=== PATIENT | female | born 1955 | race Caucasian/White ===

== ENCOUNTER → 2019-08-31 20:05 | Outpatient (CLI) | payer MEDICARE, SELFPAY | PROVIDERS: PCP Nurse Practitioner Primary Care; Visit Provider Internal Medicine Critical Care Medicine | DX: G47.33 Obstructive sleep apnea (adult) (pediatric) (principal) | CPT/HCPCS: 95811 ==

== ENCOUNTER → 2019-10-29 | Outpatient (CLI) | payer MEDICARE, SELFPAY ==
--- NOTE | 2019-10-29 14:43 | PFTCOMP ---
COMPLETE PULMONARY FUNCTION TEST INTERPRETATION Brief HPI: Patient is a 63 year old female, currently under the care of myself, who presents to [facility] for complete pulmonary function tests secondary to diagnosis of COPD. Respiratory therapist reports good effort and reproducible results. Interpretation: Forced expiration spirometry shows a severe large airways obstructive ventilatory defect with an FEV1 of 48% predicted. There is a significant bronchodilator response in FVC by strict ATS criteria. Spirograms are of good quality and plateau slowly, indicating slowly emptying areas of the lungs. The respiratory flow volume loop shows decreased expiratory flow rates at all lung volumes consistent with airway obstruction. Lung volumes by body plethysmography show a normal total lung capacity at 4.57 L, 94% predicted. FRC and RV are elevated out of proportion. Lung volume measurements are consistent with air-trapping. Diffusion capacity by carbon monoxide is decreased at 54% predicted. The airway resistance is elevated. No previous pulmonary function tests were available for review. Impression: Partially reversible severe large airways obstructive ventilatory defect resulting in air trapping, with a symmetric reduction in diffusing capacity, and a pattern consistent with advanced COPD.
== END | disposition home or self-care (01) ==
LOC: PSN 12:53
PROVIDERS: PCP Nurse Practitioner Primary Care; Referring Provider Internal Medicine Critical Care Medicine; Visit Provider Internal Medicine Critical Care Medicine
DX: R06.02 Shortness of breath (principal); G47.33 Obstructive sleep apnea (adult) (pediatric)
CPT/HCPCS: 94060; 94726; 94729

== ENCOUNTER → 2019-10-30 12:23 | Outpatient (CLI) | payer MEDICARE, SELFPAY ==
[2019-10-30 13:30] VITALS: PULSE 100; PULSE 83; PULSE 87; PULSE 90; PULSE 91; PULSE 94; PULSE 96; O2SAT 85; O2SAT 90; O2SAT 91; O2SAT 92; O2SAT 93
--- NOTE | 2019-10-30 13:33 | CPS ---
PATIENT USED ROLLATOR TO PERFORM WALK TEST. BEGAN ON ROOM AIR. SPO2 FELL TO 85%. TEST PAUSED, PLACED PT ON 2LPM, SPO2 INCREASED TO 92%, WALK CONTINUED AND PT REMAINED ON 2LPM FOR DURATION. [facility], PT CHOSE TO PICK TANK UP FROM [facility] [place] ON HER WAY HOME. (FYI...MINIMIZE CONFUSION..SHE USES [employer]IRE FOR BIPAP)
--- NOTE | 2019-10-30 14:01 | PCM.PSN.6M ---
PSN 6 Minute Walk Test - 6 Minute Walk Test 6 Minute Walk Test: 6 Minute Walk Test PSN:6-Minute Walk Test Start: 10/30/19 13:30 Freq: Status: Active Protocol: [id number] Document 10/30/19 13:30 [facility] (Rec: 10/30/19 13:37 [facility] [id number]) 6 Minute Walk Test Date Performed 10/30/19 Time Performed 12:30 Height 5 ft 4 in Weight: 115.212 kg Weight in Pounds 254.[address]: Saurabh Martinez Assistive device used: Walker Pre-test Oxygen Delivery Method Room Air Pulse Ox (%) 92 Pulse Rate (60-100 beats/min) 83 Dyspnea Saira Scale (0-10) 1 1st minute Oxygen Delivery Method Room Air Pulse Ox (%) 85 Pulse Rate (60-100 beats/min) 87 Dyspnea Saira Scale (0-10) 1 Number of Rests Taken 1 2nd minute Oxygen Flow Rate (L/min) (L/min) 2 Oxygen Delivery Method Nasal Cannula Pulse Ox (%) 93 Pulse Rate (60-100 beats/min) 90 Dyspnea Saira Scale (0-10) 2 Number of Rests Taken 0 3rd minute Oxygen Flow Rate (L/min) (L/min) 2 Oxygen Delivery Method Nasal Cannula Pulse Ox (%) 92 Pulse Rate (60-100 beats/min) 91 Dyspnea Saira Scale (0-10) 2 Number of Rests Taken 0 4th minute Oxygen Flow Rate (L/min) (L/min) 2 Oxygen Delivery Method Nasal Cannula Pulse Ox (%) 92 Pulse Rate (60-100 beats/min) 94 Dyspnea Saira Scale (0-10) 3 Number of Rests Taken 0 Reported Symptoms Increased Work of Breathing 5th minute Oxygen Flow Rate (L/min) (L/min) 2 Oxygen Delivery Method Nasal Cannula Pulse Ox (%) 91 Pulse Rate (60-100 beats/min) 96 Dyspnea Saira Scale (0-10) 3 Number of Rests Taken 0 Reported Symptoms Increased Work of Breathing 6th minute Oxygen Flow Rate (L/min) (L/min) 2 Oxygen Delivery Method Nasal Cannula Pulse Ox (%) 90 Pulse Rate (60-100 beats/min) 100 Dyspnea Saira Scale (0-10) 4 Number of Rests Taken 0 Reported Symptoms Increased Work of Breathing Post-test Oxygen Delivery Method Room Air Pulse Ox (%) 93 Pulse Rate (60-100 beats/min) 87 Dyspnea Saira Scale (0-10) 1 Full Laps Walked 12 Partial Lap, Number of Tiles Walked 32 Total Distance Walked (ft) 740 10/30/19 13:33 [facility] by Linh Krueger PATIENT USED ROLLATOR TO PERFORM WALK TEST. BEGAN ON ROOM AIR. SPO2 FELL TO 85%. TEST PAUSED, PLACED PT ON 2LPM, SPO2 INCREASED TO 92%, WALK CONTINUED AND PT REMAINED ON 2LPM FOR DURATION. ROCIO TIERNEY NOTIFIED [facility] [place] [place], PT CHOSE TO PICK TANK UP FROM [facility] ON HER WAY HOME. (FYI...MINIMIZE CONFUSION..SHE USES [employer] FOR BIPAP) Initialized on 10/30/19 13:33 - END OF NOTE - Interpretation Interpretation: The patient was noted to be 92% on room air, but desaturated in the first minute to 85% requiring 2 L nasal cannula. The patient then proceeded to ambulate for the full 6 minutes with the assistance of a walker and one break. Peak heart rate was noted at 100 bpm. In total, the patient traveled 740 feet over the course of 6 minutes. This pattern is consistent with a respiratory limitation exercise tolerance. - Recommendations Recommendations: The patient requires no supplemental oxygen at rest, but should be using 2 L nasal cannula with any exertion.
== END ==
PROVIDERS: PCP Nurse Practitioner Primary Care; Referring Provider Internal Medicine Critical Care Medicine; Visit Provider Internal Medicine Critical Care Medicine
DX: R06.02 Shortness of breath (principal); G47.33 Obstructive sleep apnea (adult) (pediatric)
CPT/HCPCS: 94618

== ENCOUNTER → 2020-05-13 17:01 | Outpatient (CLI) | payer MEDICARE, SELFPAY ==
[2020-05-07 13:20] VITALS: BMI 42.0
--- NOTE | 2020-05-13 17:04 | CT_ITS ---
STUDY: LOW DOSE CT LUNG CANCER SCREENING REASON FOR EXAM: Female, 64 years old. Lung cancer screening. 80 pack-year history. COPD. RADIATION DOSAGE (If Supplied By Facility): CTDIvol = ( 3.40 ) mGy, DLP = ( 113.16 ) mGycm TECHNIQUE: No contrast was administered. Low dose technique was utilized (average mAS-38 and kVp 120). 1.25 mm axial source images with a slice interval of 1.25-mm were reconstructed in lung windows. 2.5 mm axial source images with a slice interval of 2.5-mm were reconstructed in lung windows. 5.0 mm axial source images with a slice interval of 5.0-mm were reconstructed in soft tissue windows. Nodule measured using lung windows on PACS and/or independent workstation with automated measurement of minimum and maximum diameter. Nodule measurement reported as average diameter rounded to the nearest whole number. Growth is defined as an increase ins size of greater than 1.5 mm. COMPARISON: None. NODULES: Total lung nodules (excluding granulomas): 0 Emphysema: There is diffuse emphysematous changes of the lungs. Endobronchial lesion: None Aorta: There is atherosclerotic changes of the thoracic aorta without aneurysm. Coronary arteries: Normal Heart: Normal Pulmonary artery: Normal Mediastinal nodes: Nonspecific subcentimeter mediastinal lymphadenopathy. Other chest and abdominal findings: Degenerative changes on the thoracic spine. There appears to be vertebral augmentation of the L1 vertebra with evidence of partial vertebral collapse. CT/Low Dose CT Lung Screening IMPRESSION: Lung-RADS category 1 - Continue annual screening with LDCT in 12 months. IMPORTANT NOTES FOR USE: ACR Lung-RADS Version 1.0 Assessment Categories Release Date: August 06, 2013 Category: Coded 0-4 bases on nodule(s) with highest degree of suspicion. Negative screen is defined as categories 1 and 2; a positive screen is defined as categories 3 and 4. Category 3 and 4A nodules that are unchanged on interval CT should be coded as category 2, and individuals returned to screening in 12 months. Category 4X: Category 3 or 4 nodules with additional imaging findings that increase the suspicion of lung cancer, such as spiculation, GGN that doubles in size in 1 year, enlarged lymph notes, etc. Category Modifiers: S (significant finding unrelated to lung cancer) and C (prior history of treated lung cancer) may be added to the 0-4 Lung-RADS Electronically Signed: Alden Adams DO at 22:48 EST Tel [phone], Service support ,
== END ==
PROVIDERS: PCP Nurse Practitioner Primary Care; Referring Provider Nurse Practitioner Acute Care; Visit Provider Nurse Practitioner Acute Care
DX: F17.210 Nicotine dependence, cigarettes, uncomplicated (principal)
CPT/HCPCS: 71271